=== PATIENT | male | born 1945 | race Caucasian/White ===

== ENCOUNTER 2017-05-05 12:16 | Emergency (ER) | payer OTHER, MEDICARE ==
[~2017-05-05] VITALS: Ht 177.8 cm; Wt 111.5 kg
[2017-05-05 12:25] VITALS: BP 143/79; PULSE 76; RESP 18; TEMP 97.6; O2SAT 95
[2017-05-05] MEDS ORDERED: LISI-515 PO (13:00)
[2017-05-05] MEDS ORDERED: ATOR20TA15 PO (13:00)
[2017-05-05] MEDS ORDERED: PROPARACAINE HCL 0.5% OPHT SOLN 15 ML BTL EACH EYE ONE (13:15)
[2017-05-05] MEDS ORDERED: OCUF0.3D RIGHT EYE (13:44)
--- NOTE | 2017-05-05 13:45 | PD ---
HPI Chief Complaint: Eye Problems/Injury Time Seen by Provider: 13:00 Travel History International Travel<30 days: No Contact w/Intl Traveler<30days: No Traveled to known affect area: No History of Present Illness HPI This is a 72-year-old male here with injury to the right eye are to arrival. He reports he was moving a potted plant when a branch poked him in the right eye. He has no visual disturbances. He has mild irritation within the eye. Symptom severity is mild. No aggravating or alleviating factors. PFSH Past Medical History Medical History: Denies Significant Hx High Cholesterol: Yes Hypertension: Yes Influenza Vaccination: Yes Past Surgical History Abdominal Surgery: Yes (HERNIA) Social History Alcohol Use: Yes (OCC WINE) Tobacco Use: Yes (CIGAR) Substance Use: No Allergies-Medications (Allergen,Severity, Reaction): Coded Allergies: iodine (Verified Allergy, Severe, Swelling, 05/05/17) Reported Meds & Prescriptions Reported Meds & Active Scripts Active Reported Atorvastatin (Atorvastatin Calcium) 20 Mg Tab 20 Mg PO HS Lisinopril 20 Mg Tab 20 Mg PO DAILY Review of Systems Except as stated in HPI: all other systems reviewed are Neg General / Constitutional: No: Fever Eyes: Positive: Redness, No: Visual changes HENT: No: Headaches Cardiovascular: No: Chest Pain or Discomfort Respiratory: No: Shortness of Breath Gastrointestinal: No: Abdominal Pain Genitourinary: No: Dysuria Physical Exam Narrative GENERAL: Alert well-appearing 72-year-old male SKIN: Warm and dry. HEAD: Normocephalic. EYES: Right eye: Subconjunctival hemorrhage present located at 6-11 o'clock over the sclera. Pupil is equal, round, reactive to light. EOMs intact. Full diaz intact. No hyphema. No fluorescein dye uptake. Visual acuity: R: 20/ 20 , L: 20/25 , B:20/20 NECK: Supple CARDIOVASCULAR: Regular rate and rhythm RESPIRATORY: Breath sounds equal bilaterally. No accessory muscle use. Data Data Last Documented VS Vital Signs Date Time Temp Pulse Resp B/P (MAP) Pulse Ox O2 Delivery O2 Flow Rate FiO2 05/05/17 12:25 97.6 76 18 143/79 (100) 95 Orders Orders Proparacaine 0.5% Opth Soln (Alcaine 0.5 (05/05/17 13:15) MDM Medical Decision Making Medical Screen Exam Complete: Yes Emergency Medical Condition: Yes Differential Diagnosis Subconjunctival hemorrhage, corneal abrasion, corneal ulcer Narrative Course 72-year-old male here with a subconjunctival hemorrhage to the right eye after he was poked by a plant branch. His vision is preserved. His exam is reassuring. He is not anticoagulated. He will be prescribed antibiotic eyedrops and instructed to follow-up with ophthalmology for recheck. Strict return precautions were discussed. Patient verbalizes understanding and agrees to plan Diagnosis Primary Impression: Subconjunctival hemorrhage Qualified Codes: H11.31 - Conjunctival hemorrhage, right eye Referrals: Adelita Love MDcore dropper Additional Instructions: Eye drops as directed. Call to schedule a follow-up with ophthalmology. Return to emergency department if he developed new or worsening symptoms. Scripts Ofloxacin Opth Drops (Ocuflox Opth Drops) 0.3 % Drops 1 DROP RIGHT EYE Q6HR for Infection, #1 BOTTLE 0 Refills Prov: Taya Saavedra 05/05/17 Disposition: 01 DISCHARGE HOME Condition: Stable Taya Saavedra May 05, 2017 13:45
== END 2017-05-05 13:59 | disposition home or self-care (01) ==
LOC: PHEFT 12:16
DX: H11.31 Conjunctival hemorrhage, right eye (principal); I10 Essential (primary) hypertension; Z72.0 Tobacco use; W60.XXXA Contact with nonvenomous plant thorns and spines and sharp leaves, initial encounter
CPT/HCPCS: 99283